=== PATIENT | female | born 2000 | race Two or more races ===

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

== ENCOUNTER 2021-08-25 12:35 | Emergency (ER) | payer BC ==
[~2021-08-25] VITALS: Ht 157.5 cm; Wt 79.4 kg
[~2021-08-25 12:35] MED LIST: OXYC-128 PO
[2021-08-25] MEDS ORDERED: NAPR-1192 PO (13:49)
--- NOTE | 2021-08-25 13:57 | NUR ---
Pt taught proper wear and use of thumb spica. States understanding information. Patient discharged to home in stable condition. Written and verbal after care instructions given. Patient verbalizes understanding of instructions. Stressed follow up or return to ER for worsening S/S.
[2021-08-25 13:58] VITALS: BP 131/90
== END 2021-08-25 13:55 | disposition home or self-care (01) ==
LOC: ER 12:35
DX: S66.802A Unspecified injury of other specified muscles, fascia and tendons at wrist and hand level, left hand, initial encounter (principal); M77.8 Other enthesopathies, not elsewhere classified; X50.0XXA Overexertion from strenuous movement or load, initial encounter; Y93.61 Activity, american tackle football; Y92.89 Other specified places as the place of occurrence of the external cause
CPT/HCPCS: 73110; A4663